=== PATIENT | male | born 1945 | race American Indian/Alaskan Native ===

== ENCOUNTER 2018-12-31 10:53 | Day surgery (SDC) | payer MEDICARE ==
[~2018-12-31 10:53] MED LIST: NACL 0.9% 1000 ML 1,000 ML IV SCH
[2018-12-31] MEDS ORDERED: DIPRIVAN 10 MG/ML IV ONE (16:27)
[2018-12-31] MEDS ORDERED: XYLOCAINE MPF 2% ONE (16:30)
--- NOTE | 2018-12-31 17:10 | Operative Report ---
Operative Report Operative Report: Date of procedure: 12/31/2018 Procedure: Colonoscopy with Hot Biopsy Polypectomy, Public Information Relations Manager: Gino Garcia MD Indication: Patient is a 73-year-old male who presents with a history of abdominal pain, abdominal distention with bloating for colonoscopy evaluation. This colonoscopy serves to evaluate patient so that treatment may be directed based on the findings. Consent: Informed consent was obtained after advising the patient and family regarding nature of this procedure, its indications, potential benefits as well as possible complications including but not limited to bleeding perforation and adverse reaction to medication, infection as well as other cardiopulmonary complications. An informed written and verbal consent was then obtained after due opportunity was provided for questions and answers. Monitoring: Patient was monitored continuously with pulse oximetry and electrocardiographic recordings as well as blood pressure recordings. Vital signs remained stable throughout this procedure with no untoward events. Preoperative assessment: Patient was assessed immediately prior to this procedure for capacity to tolerate monitored anesthesia care and moderate sedation as well as general anesthesia. Patient's ASA classification is 2, Mallampati class is 2, Hyomental distance is 3. Instrument: Olympus video colonoscope Medications: Propofol given intravenously in divided doses. For details please refer to anesthesia records. Description of procedure: Patient was placed in the left lateral decubitus position after achieving sedation, a digital rectal examination was performed following which the colonoscope was introduced into the anal verge and advanced to the cecum which was identified by the cecal valve, the appendiceal orifice, as well as by the cecal strap and direct transillumination. The colonoscope was subsequently withdrawn with careful inspection of all mucosal surfaces. Patient tolerated this procedure well and was subsequently taken to the recovery room. The following findings were noted. Findings: Preparation was fair with substantial retained stool. There was pancolonic diverticulosis in all sections of the colon. In the transverse colon, patient had a diminutive 5-6 mm polyp which was removed by hot biopsy polypectomy. The rest of the colon was normal. On the retroflexed view of the anal verge, patient had internal hemorrhoids. Impression: Transverse colon polyp status post hot biopsy polypectomy. Colonic diverticulosis Internal hemorrhoids. Plan: Follow pathology report. High-fiber diet. Repeat colonoscopy in 5 years the polyp is adenomatous.
--- NOTE | 2018-12-31 17:11 | Discharge Summary ---
Short Stay Discharge Plan Activity: advance as tolerated Weight Bearing Status: Weight Bear as Tolerated Diet: regular Additional Instructions: Post Sedation D/C Instructions When you return home you may resume your regular diet unless otherwise directed. -Go directly home from the hospital and rest quietly. You may resume normal activities tomorrow. -Do NOT drive, return to work, operate any machinery or make any important personal or business decisions today. -Do NOT drink any alcohol or take nerve or sleeping drugs. They add to the effects of the medicine still present in your body. No Aspirin or Aspirin products for 3 days Follow up with: SHANAE BOB MD [Primary Care Provider] - 7 Days
[2018-12-31 17:21] VITALS: BP 143/89
== END 2018-12-31 10:54 | disposition home or self-care (01) ==
LOC: GIO 10:53
PROVIDERS: ATTEND Internal Medicine Gastroenterology
DX: D12.3 Benign neoplasm of transverse colon (principal); K57.30 Diverticulosis of large intestine without perforation or abscess without bleeding; K64.8 Other hemorrhoids; I10 Essential (primary) hypertension; Z79.899 Other long term (current) drug therapy; Z85.46 Personal history of malignant neoplasm of prostate; Z72.89 Other problems related to lifestyle; Z98.890 Other specified postprocedural states
CPT/HCPCS: 45384; 88305; J2704; J7030